=== PATIENT | male | born 1950 | race Caucasian/White ===

== ENCOUNTER 2018-03-25 09:54 | Day surgery (SDC) | payer MEDICARE ==
[2018-03-25] MEDS ORDERED: PROPOFOL 200 MG/20 ML VIAL ONE (10:22)
[2018-03-25 10:58] LABS: Hemoglobin 14.4 g/dL (14.0-18.0); Mean Corpuscular HGB CONC 31.6 g/dL (32.0-36.0); Mean Corpuscular Hemoglobin 30.9 pg (27.0-31.0); Mean Corpuscular Volume 97.8 fL (78.0-98.0); Mean Platelet Volume 8.2 fL (7.4-10.4); Platelet Count 131 thou/uL (130-400); RBC Distribution Width 13.5 % (11.5-14.5); Red Blood Cell (RBC) Count 4.66 mill/uL (4.70-6.10); White Blood Cell (WBC) Count 5.7 thou/uL (4.8-10.8)
[2018-03-25 11:09] LABS: INR-International Normal Ratio 1.7; PTT 38.5 SEC (22.9-36.1); Prothrombin Time 20.1 SEC (12.0-14.7)
[2018-03-25 11:19] LABS: Anion Gap 12 mmol/L (10-20); BUN (Urea Nitrogen) 43 mg/dL (8.4-25.7); Calc. Creatinine Clearance 0 mL/min (70-130); Calcium 8.7 mg/dL (7.8-10.44); Carbon Dioxide 26 mmol/L (23-31); Chloride 108 mmol/L (98-107); Estimated GFR-MDRD 14; Glucose 77 mg/dL (80-115); Potassium 3.4 mmol/L (3.5-5.1); Sodium 143 mmol/L (136-145)
[2018-03-25] MEDS ORDERED: PROPOFOL 20 ML ONE (12:46)
[2018-03-25] MEDS ORDERED: Dextrose 50% Abboject 50 ML SYRINGE ONE (12:47)
--- NOTE | 2018-03-25 13:31 | OP ---
DATE OF PROCEDURE: 03/25/2018 INTERNAL CARDIOVERSION REPORT REFERRING PHYSICIAN: Adama Perez M.D. REASON FOR PROCEDURE: Mr. Carballo is here for a cardioversion. He is under chronic anticoagulation. PROCEDURE IN DETAIL: The patient received propofol by Anesthesia specialist. After adequate level o f sedation achieved, the ICD was interrogated and attempt was made to pace terminate the atrial arrhy thmia by overdrive pacing, which was not successful, but subsequently a 35-joule synchronized shock p romptly converted the patient back to sinus rhythm. CONCLUSION: Successful cardioversion. PLAN: We will program atrial ATP therapies on and routine followup in the office.
--- NOTE | 2018-03-25 17:16 | EKG ---
Test Reason : PREOP Blood Pressure : / mmHG Vent. Rate : 072 BPM Atrial Rate : 072 BPM P-R Int : 000 ms QRS Dur : 168 ms QT Int : 536 ms P-R-T Axes : 000 -88 091 degrees QTc Int : 586 ms Electronic ventricular pacemaker No previous ECGs available Confirmed by DR. Mery FATIMA ([id number]) on 03/25/2018 5:15:44 PM Referred By: [facility] Confirmed By:DR. Mery FATIMA
== END 2018-03-25 14:26 | disposition home or self-care (01) ==
LOC: CCL 09:54
PROVIDERS: ATTEND Internal Medicine Cardiovascular Disease
PROC: 5A2204Z Restoration of Cardiac Rhythm, Single (ICD-10-PCS; principal; 2018-03-25)
DX: I48.91 Unspecified atrial fibrillation (principal); Z79.01 Long term (current) use of anticoagulants; Z79.4 Long term (current) use of insulin; Z79.82 Long term (current) use of aspirin; Z79.899 Other long term (current) drug therapy; Z88.2 Allergy status to sulfonamides
CPT/HCPCS: 36415; 36416; 80048; 85027; 85610; 85730; 92960; 93005; 93010; J2704

== ENCOUNTER 2018-05-12 09:53 | Outpatient (CLI) | payer MEDICARE ==
[2018-05-12 10:32] LABS: Hemoglobin 12.4 g/dL (14.0-18.0); Mean Corpuscular HGB CONC 32.5 g/dL (32.0-36.0); Mean Corpuscular Hemoglobin 31.9 pg (27.0-31.0); Mean Corpuscular Volume 98.2 fL (78.0-98.0); Mean Platelet Volume 7.9 fL (7.4-10.4); Platelet Count 128 thou/uL (130-400); White Blood Cell (WBC) Count 5.1 thou/uL (4.8-10.8)
[2018-05-12 10:39] LABS: INR-International Normal Ratio 1.6
[2018-05-12 10:40] LABS: PTT 35.7 SEC (22.9-36.1)
[2018-05-12 11:01] LABS: Anion Gap 14 mmol/L (10-20); BUN (Urea Nitrogen) 44 mg/dL (8.4-25.7); Calc. Creatinine Clearance 0 mL/min (70-130); Calcium 8.2 mg/dL (7.8-10.44); Carbon Dioxide 24 mmol/L (23-31); Chloride 111 mmol/L (98-107); Estimated GFR-MDRD 17; Glucose 79 mg/dL (80-115); Potassium 4.2 mmol/L (3.5-5.1); Sodium 145 mmol/L (136-145)
== END 2018-05-12 09:54 | disposition home or self-care (01) ==
LOC: LABBT 09:53
PROVIDERS: ATTEND Internal Medicine Cardiovascular Disease
DX: Z01.812 Encounter for preprocedural laboratory examination (principal); I48.91 Unspecified atrial fibrillation
CPT/HCPCS: 80048; 85027; 85610; 85730

== ENCOUNTER 2018-05-14 10:30 | Day surgery (SDC) | payer MEDICARE ==
[2018-05-12 10:38] VITALS: BMI 33.0
[2018-05-14] MEDS ORDERED: Dextrose 50% Abboject 50 ML SYRINGE ONE (11:33)
[2018-05-14] MEDS ORDERED: CEFAZOLIN 2 GM/50 ML BAG ONE (12:47)
[2018-05-14] MEDS ORDERED: CEFAZOLIN 1 GM VIAL ONE (12:47)
[2018-05-14] MEDS ORDERED: Fentanyl 100 MCG/2 ML VIAL ONE (13:48)
[2018-05-14] MEDS ORDERED: PROPOFOL 20 ML ONE (14:31)
--- NOTE | 2018-05-14 18:03 | RAD ---
FRONTAL VIEW CHEST: 05/14/18 No prior comparison. CLINICAL HISTORY: Post BIV placement. FINDINGS: There is a left subclavian approach AICD with three discrete leads, two of which overlie the left asp ect of the heart and the additional overlies the right portion of the cardiac silhouette. These are n ot further localized on the frontal view. Interstitial prominence to the lung is present. There is pr ominent cardiac silhouette and prominence of central pulmonary vasculature. Evidence to indicate prio r resection of the lateral right clavicle. IMPRESSION: Left sided ACID present. There is no discrete, postprocedural pneumothorax of significance. POS: [facility]
[2018-05-14] MEDS ORDERED: PROPOFOL 200 MG/20 ML VIAL ONE (19:59)
== END 2018-05-14 18:35 | disposition home or self-care (01) ==
LOC: CCL 10:30
PROVIDERS: ATTEND Internal Medicine Cardiovascular Disease
PROC: 0JPT0PZ Removal of Cardiac Rhythm Related Device from Trunk Subcutaneous Tissue and Fascia, Open Approach (ICD-10-PCS; principal; 2018-05-14)
PROC: 0JH609Z Insertion of Cardiac Resynchronization Defibrillator Pulse Generator into Chest Subcutaneous Tissue and Fascia, Open Approach (ICD-10-PCS; 2018-05-14)
PROC: 02H43KZ Insertion of Defibrillator Lead into Coronary Vein, Percutaneous Approach (ICD-10-PCS; 2018-05-14)
DX: Z45.02 Encounter for adjustment and management of automatic implantable cardiac defibrillator (principal); I11.0 Hypertensive heart disease with heart failure; I50.22 Chronic systolic (congestive) heart failure; I48.1 Persistent atrial fibrillation; I25.5 Ischemic cardiomyopathy; I47.2 Ventricular tachycardia; I25.10 Atherosclerotic heart disease of native coronary artery without angina pectoris; E11.9 Type 2 diabetes mellitus without complications; E66.9 Obesity, unspecified; Z88.5 Allergy status to narcotic agent; Z68.33 Body mass index [BMI] 33.0-33.9, adult; Z88.2 Allergy status to sulfonamides; Z79.82 Long term (current) use of aspirin; Z79.4 Long term (current) use of insulin; Z79.01 Long term (current) use of anticoagulants; Z79.899 Other long term (current) drug therapy
CPT/HCPCS: 36416; 71045; 93005; 93010; C1882; C1900; J0690; J2704; J3010